=== PATIENT | female | born 2000 | race Hispanic/Latino ===

== ENCOUNTER 2024-01-25 05:00 | Emergency (ER) | payer BC ==
[~2024-01-25] VITALS: Ht 165.1 cm; Wt 122.5 kg
[~2024-01-25 05:00] MED LIST: LEXAPRO10 MG PO
[2024-01-25 05:06] VITALS: TEMP 98.5
[2024-01-25] MEDS: SODIUM CHLORIDE 0.9% 1000ML 1,000 ML IV STA (05:34)
[2024-01-25] MEDS: FAMOTIDINE 20 MG/2 ML VIAL IV STA (05:35)
[2024-01-25] MEDS: ONDANSETRON HCL INJ 2MG/ML 2ML 2 MG/ML VIAL IV STA (05:36)
[2024-01-25] MEDS: Morphine 4mg INJECTION 4 MG/ML INJ IV STA (05:36)
[2024-01-25 05:47] LABS: BASOPHILS # (AUTO) 0.1 (0.0-0.1); BASOPHILS % 0.5 % (0.0-1.0); EOSINOPHILS # (AUTO) 0.4 (0.0-0.4); HEMATOCRIT 42.5 % (34.2-44.1); HEMOGLOBIN 14.4 g/dL (12.0-16.0); LYMPHOCYTES # (AUTO) 1.6 (1.0-3.2); LYMPHOCYTES % 13.2 % (18.0-39.1); MEAN CORPUSCULAR HEMOGLOBIN 33.7 pg (28-32); MEAN CORPUSCULAR HGB CONC 33.9 g/dL (31-35); MEAN CORPUSCULAR VOLUME 99.5 fL (81-99); MONOCYTES # (AUTO) 0.8 (0.2-0.8); MONOCYTES % 6.7 % (4.4-11.3); NEUTROPHILS % 76.3 % (38.7-80.0); PLATELET COUNT 324 x10e3/uL (140-360); RED BLOOD COUNT 4.27 x10e6/uL (3.6-5.1); RED CELL DISTRIBUTION WIDTH 11.7 % (11.7-14.4)
[2024-01-25 05:55] LABS: CLARITY,URINE CLOUDY (CLEAR); COLOR,URINE RED (YELLOW)
[2024-01-25 05:56] LABS: BILIRUBIN,URINE NEGATIVE (NEGATIVE); GLUCOSE, URINE NEGATIVE (NEGATIVE); KETONES,URINE NEGATIVE (NEGATIVE); LEUKOCYTE ESTERASE ,URINE SMALL (NEGATIVE); NITRITE,URINE NEGATIVE (NEGATIVE); PH,URINE 7 (5 - 7); PREGNANCY TEST, URINE NEGATIVE (NEGATIVE); PROTEIN,URINE DIPSTICK 2+ (NEGATIVE); URINE UROBILINOGEN 0.2 mg/dL (0.2 - 1)
[2024-01-25 05:58] LABS: BACTERIA,URINE FEW /HPF; EPITHELIAL CELLS,URINE FEW /LPF; RBC,URINE >50 /HPF (0-5)
[2024-01-25 06:03] LABS: ALBUMIN 3.9 g/dL (3.5-5.0); ALBUMIN/GLOBULIN RATIO 1.1 (0.8-2.0); ANION GAP 13.6 mmol/L (8-16); BILIRUBIN,TOTAL 0.4 mg/dL (0.2-1.2); CREATININE, SERUM 0.76 mg/dL (0.57-1.11); POTASSIUM 3.6 mmol/L (3.5-5.1); TOTAL PROTEIN 7.6 g/dL (6.5-8.1)
[2024-01-25] MEDS ORDERED: IOPAMIDOL 370 MG/ML 100 ML INFUS..BTL INJ ONE (06:18)
[2024-01-25 07:08] VITALS: PULSE 65; RESP 18; O2SAT 96
[2024-01-25] MEDS ORDERED: CEFDINIR300 MG PO (07:08)
[2024-01-25] MEDS ORDERED: PANTOPRAZOLE SO40 MG PO (07:08)
[2024-01-25] MEDS ORDERED: ONDANSETRON ODT4 MG PO (07:08)
[2024-01-25] MEDS ORDERED: DICYCLOMINE HCL20 MG PO (07:08)
== END 2024-01-25 07:18 | disposition home or self-care (01) ==
LOC: ER 05:11
DX: R10.13 Epigastric pain (principal); R11.2 Nausea with vomiting, unspecified; K29.70 Gastritis, unspecified, without bleeding; K20.90 Esophagitis, unspecified without bleeding; K44.9 Diaphragmatic hernia without obstruction or gangrene; N39.0 Urinary tract infection, site not specified
CPT/HCPCS: 36415; 74177; 80053; 81001; 81025; 83690; 85025; 99284; J2270; J2405; J7030; Q9967

== ENCOUNTER 2024-04-26 08:31 | Emergency (ER) | payer BC ==
[~2024-04-26] VITALS: Ht 165.1 cm; Wt 127.0 kg
[~2024-04-26 08:31] MED LIST changes: +CEFDINIR300 MG PO; +DICYCLOMINE HCL20 MG PO; +ONDANSETRON ODT4 MG PO; +PANTOPRAZOLE SO40 MG PO
[2024-04-26 08:33] VITALS: TEMP 97.9
[2024-04-26 08:59] LABS: BASOPHILS % 0.3 % (0.0-1.0); HEMOGLOBIN 15.2 g/dL (12.0-16.0); LYMPHOCYTES # (AUTO) 2.1 (1.0-3.2); LYMPHOCYTES % 13.9 % (18.0-39.1); MEAN CORPUSCULAR HEMOGLOBIN 33.7 pg (28-32); MEAN CORPUSCULAR HGB CONC 35.3 g/dL (31-35); MEAN CORPUSCULAR VOLUME 95.3 fL (81-99); MONOCYTES # (AUTO) 0.5 (0.2-0.8); MONOCYTES % 3.1 % (4.4-11.3); NEUTROPHILS # (AUTO) 12.3 (2.1-6.9); NEUTROPHILS % 82.1 % (38.7-80.0); PLATELET COUNT 400 x10e3/uL (140-360); RED BLOOD COUNT 4.51 x10e6/uL (3.6-5.1); RED CELL DISTRIBUTION WIDTH 11.9 % (11.7-14.4); WHITE BLOOD COUNT 14.94 x10e3/uL (4.8-10.8)
[2024-04-26] MEDS ORDERED: IOPAMIDOL 370 MG/ML 100 ML INFUS..BTL INJ ONE (09:06)
[2024-04-26] MEDS: ONDANSETRON HCL INJ 2MG/ML 2ML 2 MG/ML VIAL IV STA (09:18)
[2024-04-26] MEDS: SODIUM CHLORIDE 0.9% 1000ML 1,000 ML IV STA (09:19)
[2024-04-26 09:23] VITALS: PULSE 65; RESP 18
[2024-04-26 09:33] LABS: ALBUMIN 4.3 g/dL (3.5-5.0); ALBUMIN/GLOBULIN RATIO 1.1 (0.8-2.0); ANION GAP 20.1 mmol/L (8-16); BILIRUBIN,TOTAL 0.5 mg/dL (0.2-1.2); CALCIUM 9.3 mg/dL (8.4-10.2); CREATININE, SERUM 0.85 mg/dL (0.57-1.11); TOTAL PROTEIN 8.3 g/dL (6.5-8.1)
[2024-04-26 09:36] LABS: POTASSIUM 3.1 mmol/L (3.5-5.1)
[2024-04-26] MEDS ORDERED: ONDANSETRON ODT4 MG PO (10:42)
[2024-04-26] MEDS ORDERED: OMEPRAZOLE40 MG PO (10:42)
[2024-04-26 10:53] VITALS: BP 116/77; PULSE 69; RESP 18; TEMP 98.1; O2SAT 100
== END 2024-04-26 10:55 | disposition home or self-care (01) ==
LOC: ER 08:37
DX: K22.6 Gastro-esophageal laceration-hemorrhage syndrome (principal); K21.9 Gastro-esophageal reflux disease without esophagitis; F41.9 Anxiety disorder, unspecified; F32.A Depression, unspecified
CPT/HCPCS: 36415; 71260; 80053; 84702; 85025; 99284; J2405; J2470; J7030; Q9967

== ENCOUNTER 2024-11-12 23:54 | Emergency (ER) | payer BC ==
[~2024-11-12] VITALS: Ht 165.1 cm; Wt 127.0 kg
[~2024-11-12 23:54] MED LIST changes: +OMEPRAZOLE40 MG PO
[2024-11-13 00:01] VITALS: PULSE 83; RESP 17; TEMP 98.2
[2024-11-13] MEDS: SODIUM CHLORIDE 0.9% 1000ML 1,000 ML IV ONE (00:29)
[2024-11-13] MEDS: ONDANSETRON HCL INJ 2MG/ML 2ML 2 MG/ML VIAL IV STA (00:29)
[2024-11-13 00:36] LABS: BASOPHILS % 0.3 % (0.0-1.0); EOSINOPHILS % 0.0 % (0.0-6.0); LYMPHOCYTES % 11.0 % (18.0-39.1); MONOCYTES % 4.8 % (4.4-11.3); NEUTROPHILS % 83.6 % (38.7-80.0); RED CELL DISTRIBUTION WIDTH 11.8 % (11.7-14.4)
[2024-11-13 00:52] LABS: EST GLOMERULAR FILTRATION RATE 126.0 ML/MIN (>=60)
[2024-11-13] MEDS ORDERED: ONDANSETRON ODT4 MG SL (01:37)
[2024-11-13] MEDS ORDERED: PANTOPRAZOLE SO40 MG PO (01:37)
[2024-11-13 01:44] VITALS: BP 141/86; PULSE 80; RESP 17; TEMP 98; O2SAT 100
== END 2024-11-13 01:50 | disposition home or self-care (01) ==
LOC: ER 11-13 00:25
DX: R10.13 Epigastric pain (principal); K29.70 Gastritis, unspecified, without bleeding; R11.2 Nausea with vomiting, unspecified; K21.9 Gastro-esophageal reflux disease without esophagitis; F41.9 Anxiety disorder, unspecified; F32.A Depression, unspecified
CPT/HCPCS: 36415; 80053; 83690; 84702; 85025; 99284; J2405; J2470; J7030